=== PATIENT | female | born 1965 | race Caucasian/White ===

== ENCOUNTER 2016-08-09 13:08 | Inpatient (IN) | payer MEDICAID ==
[~2016-08-09] VITALS: Ht 175.3 cm; Wt 94.3 kg
[2016-08-09] MEDS ORDERED: BISACODYL EC 5 MG TAB PO PRN (16:55)
[2016-08-09] MEDS ORDERED: SALINE FLUSH 10 ML FLUSH PRN (16:55)
[2016-08-09] MEDS ORDERED: ACETAMINOPHEN 325 MG TAB PO PRN (16:55)
[2016-08-09] MEDS ORDERED: ALU/MAG/SIM 30 ML UDC PO PRN (16:55)
[2016-08-09] MEDS ORDERED: MAG HYDROX 30 ML UDC PO PRN (16:55)
[2016-08-09] MEDS ORDERED: BISACODYL 10 MG SUPP RECTAL PRN (16:55)
[2016-08-09] MEDS ORDERED: DEXTROSE 50% SYRINGE 50 ML IV PRN (17:45)
[2016-08-09] MEDS ORDERED: GLUCAGON 1 MG VIAL IM PRN (17:45)
[2016-08-09 18:19] VITALS: BP_SYST 150; BP_SYST 160; RESP 20; TEMP 98.7
[2016-08-09 18:21] VITALS: Ht 175.3 cm; Wt 94.3 kg
[2016-08-09 20:00] VITALS: BP_SYST 127; RESP 18; TEMP 98.3
[2016-08-09] MEDS: MULTIVITAMINS PO SCH (20:03)
[2016-08-09] MEDS: SALINE FLUSH 10 ML FLUSH SCH (20:04)
[2016-08-09] MEDS: LEVOFLOXACIN 750 MG/150 ML 150 ML IV SCH (20:04)
[2016-08-09] MEDS: FOLIC ACID 1 MG TAB PO SCH (20:04)
[2016-08-09] MEDS: ENOXAPARIN 40 MG/0.4 ML SYR SUBQ SCH (20:05)
[2016-08-09] MEDS: THIAMINE 200 MG/2 ML VIAL IM SCH (20:05)
[2016-08-09] MEDS ORDERED: *PINK BRACELET XX ONE (21:30)
[2016-08-10] VITALS (8 sets, daily range): BP systolic 124–166; RESP 18–20; TEMP 97.7–98.5
[2016-08-10] MEDS: PREGABALIN 100 MG CAPSULE PO SCH ×2 (00:06→20:18)
[2016-08-10] MEDS: SODIUM CHLORIDE 0.9% FLUSH BAG 500 ML IV SCH (05:25)
[2016-08-10] MEDS: PANTOPRAZOLE 40 MG TAB PO SCH (06:06)
[2016-08-10] MEDS: *HOME MEDS KEPT IN PHARMACY XX SCH ×2 (08:00→19:38)
[2016-08-10] MEDS ORDERED: ALPRAZOLAM 0.25 MG TAB PO ONE (08:10)
[2016-08-10] MEDS: MULTIVITAMINS PO SCH (09:19)
[2016-08-10] MEDS: FOLIC ACID 1 MG TAB PO SCH (09:19)
[2016-08-10] MEDS: THIAMINE 200 MG/2 ML VIAL IM SCH (09:20)
[2016-08-10] MEDS: ENOXAPARIN 40 MG/0.4 ML SYR SUBQ SCH (09:20)
[2016-08-10] MEDS: LEVOFLOXACIN 750 MG/150 ML 150 ML IV SCH (09:20)
[2016-08-10] MEDS: SALINE FLUSH 10 ML FLUSH SCH ×2 (09:21→20:00)
[2016-08-10] MEDS ORDERED: MAGNEVIST 20ML IV ONE (12:51)
[2016-08-11] VITALS: BP_SYST 134; RESP 18; TEMP 98.2
[2016-08-11 03:00] VITALS: BP_SYST 142; RESP 18; TEMP 98.3
[2016-08-11] MEDS: PANTOPRAZOLE 40 MG TAB PO SCH (06:14)
[2016-08-11] MEDS: SODIUM CHLORIDE 0.9% FLUSH BAG 500 ML IV SCH (06:14)
[2016-08-11 07:53] VITALS: BP_SYST 138; RESP 18; TEMP 97.8
[2016-08-11] MEDS: *HOME MEDS KEPT IN PHARMACY XX SCH (08:00)
[2016-08-11] MEDS: THIAMINE 200 MG/2 ML VIAL IM SCH (08:38)
[2016-08-11] MEDS: SALINE FLUSH 10 ML FLUSH SCH (08:38)
[2016-08-11] MEDS: MULTIVITAMINS PO SCH (08:39)
[2016-08-11] MEDS: ENOXAPARIN 40 MG/0.4 ML SYR SUBQ SCH (08:39)
[2016-08-11] MEDS: FOLIC ACID 1 MG TAB PO SCH (08:39)
[2016-08-11] MEDS: LEVOFLOXACIN 750 MG/150 ML 150 ML IV SCH (08:49)
[2016-08-11 11:17] VITALS: BP_SYST 138; RESP 18; TEMP 97.8
[2016-08-11 11:30] VITALS: BP_SYST 146; RESP 18; TEMP 98.1
== END 2016-08-11 12:33 | disposition home or self-care (01) | DRG 72 ==
LOC: ENRESERVDT → ENRESERVTM → ER 13:08 → ENPENDDIS 16:53 → EMR 16:53 → PCU 17:59
PROVIDERS: ADMIT Internal Medicine; ATTEND Internal Medicine
DX: G93.40 Encephalopathy, unspecified (principal); I10 Essential (primary) hypertension; E11.9 Type 2 diabetes mellitus without complications; Z72.89 Other problems related to lifestyle; K21.9 Gastro-esophageal reflux disease without esophagitis; Z98.84 Bariatric surgery status; J40 Bronchitis, not specified as acute or chronic; M79.7 Fibromyalgia; F17.210 Nicotine dependence, cigarettes, uncomplicated
CPT/HCPCS: 36415; 70450; 70553; 71010; 80053; 80061; 80307; 80320; 81003; 82553; 82947; 83036; 83735; 83880; 84439; 84443; 84484; 85025; 85384; 85610; 85652; 85730; 86141; 87040; 93005; 93306; 93880; 99222; 99233; 99238